=== PATIENT | female | born 1995 | race Caucasian/White ===

== ENCOUNTER → 2024-01-10 11:24 | Outpatient (REF) | payer OTHER, SELFPAY | LOC: HWRAD 11:24 | PROVIDERS: ATTENDING PHYSICIAN Urology | DX: Z85.528 Personal history of other malignant neoplasm of kidney (principal) | CPT/HCPCS: 71046; 76775 ==

== ENCOUNTER → 2024-01-20 12:53 | Outpatient (REF) | payer OTHER, SELFPAY | LOC: MRI 3T 12:53 | PROVIDERS: ATTENDING PHYSICIAN Ophthalmology Cornea and External Diseases Specialist; FAMILY PHYSICIAN Nurse Practitioner; REFERRING PHYSICIAN Ophthalmology | DX: H47.10 Unspecified papilledema (principal) | CPT/HCPCS: 70543; 70553; A9575 ==